=== PATIENT | female | born 1985 | race Caucasian/White ===

== ENCOUNTER 2019-06-16 17:34 | Emergency (ER) | payer OTHER ==
[~2019-06-16] VITALS: Ht 162.6 cm; Wt 90.0 kg
[2019-06-16 17:42] VITALS: BP 136/73
[2019-06-16] MEDS ORDERED: OXYcodone/APAP 5/325MG TABLET ONE (18:04)
[2019-06-16] MEDS ORDERED: AMOXICILLIN 500 MG CAPSULE ONE (18:05)
[2019-06-16] MEDS ORDERED: PLEASE ENTER ALLERGIES MC SCH (18:30)
[2019-06-16] MEDS ORDERED: OXYcodone/APAP 5/325MG TABLET PO ONE (18:30)
[2019-06-16] MEDS ORDERED: AMOXICILLIN 500 MG CAPSULE PO ONE (18:30)
--- NOTE | 2019-06-16 18:32 | NUR ---
TASK RN: PT REPORTS IMPROVEMENT IN PAIN. DC EDUCATION PROVIDED, PT DEMONSTRATES UNDERSTANDING. PT AMBULATED STEADILY TO DC WITH RN AND FRIEND.
== END 2019-06-16 18:36 ==
LOC: ED 17:35
DX: H66.001 Acute suppurative otitis media without spontaneous rupture of ear drum, right ear (principal)
CPT/HCPCS: 99283